=== PATIENT | female | born 1975 | race Caucasian/White ===

== ENCOUNTER 2020-12-23 15:43 | Emergency (ER) | payer MEDICAID ==
[~2020-12-23] VITALS: Ht 160 cm; Wt 75.1 kg
[2020-12-23 15:50] VITALS: BP 163/94
--- NOTE | 2020-12-23 15:57 | NUR ---
Patient ambulated to bed 8. RN evaluating the patient at bedside.
--- NOTE | 2020-12-23 16:02 | NUR ---
PT IS A 45 Y/O FEMALE WALKED IN C/C HIGH BLOOD PRESSURE XTODAY. PATIENT ALSO C/O HEADACHE 12/06 TODAY. PATIENT DENIES CP, SOB, BLURRY VISION, COUGH, ABDOMINAL PAIN, N/V OR DIARRHEA PMH: HTN, CVA 2016 RX: ENALAPRIL 10MG NKA
--- NOTE | 2020-12-23 16:14 | NUR ---
Dr. Leslie is evaluating the patient at bedside.
[2020-12-23] MEDS: KETOROLAC 60 MG/2 ML VIAL IM ONE (16:22)
[2020-12-23] MEDS ORDERED: IBUP-2213 PO (16:40)
--- NOTE | 2020-12-23 16:49 | NUR ---
Patient taken to CT scan via wheelchair by tech.
--- NOTE | 2020-12-23 17:00 | NUR ---
Patient returned from CT scan.
[2020-12-23 17:24] VITALS: BP 131/87
== END 2020-12-23 17:25 | disposition home or self-care (01) ==
LOC: MED 15:43
DX: I10 Essential (primary) hypertension (principal); R51.9 Headache, unspecified; Z90.49 Acquired absence of other specified parts of digestive tract; Z79.899 Other long term (current) drug therapy; Z86.73 Personal history of transient ischemic attack (TIA), and cerebral infarction without residual deficits
CPT/HCPCS: 70450; 96372; 99284; J1885

== ENCOUNTER 2021-08-22 15:15 | Emergency (ER) | payer MEDICAID, OTHER ==
[~2021-08-22] VITALS: Ht 157.5 cm; Wt 72.1 kg
[~2021-08-22 15:15] MED LIST: IBUP-2213 PO
[2021-08-22 16:10] VITALS: BP 154/79
[2021-08-22] MEDS ORDERED: ONDANSETRON 4 MG ODT PO ONE (16:30)
[2021-08-22] MEDS ORDERED: ACETAMINOPHEN 325 MG TAB PO ONE (16:30)
[2021-08-22] MEDS ORDERED: ALUMINUM HYD/MAG/SIMETHICONE 30 ML, DICYCLOMINE HCL LIQUID 20 MG, LIDOCAINE VISCOUS 2% ... PO ONE ×3 (16:30)
[2021-08-22] MEDS ORDERED: DICYCLOMINE HCL LIQUID 10 MG/5 ML UDC ONE (16:50)
[2021-08-22] MEDS ORDERED: ALUMINUM HYD/MAG/SIMETHICONE 30 ML UDC ONE (16:50)
[2021-08-22 17:14] LABS: BASOPHILS # (AUTO) 0.1 K/uL (0.00-0.22); BASOPHILS % (AUTO) 0.6 % (0.0-2.0); EOSINOPHILS # (AUTO) 0.2 K/uL (0-0.4); EOSINOPHILS % (AUTO) 1.7 % (0.0-4.0); HEMATOCRIT 41.6 % (36-48); HEMOGLOBIN 14.2 g/dL (12.0-16.0); LYMPHOCYTES # (AUTO) 2.5 K/uL (2.5-16.5); LYMPHOCYTES % (AUTO) 24.3 % (20.5-51.1); MEAN CORPUSCULAR HEMOGLOBIN 29 pg (27-31); MEAN CORPUSCULAR HGB CONC 34 g/dL (33-37); MEAN CORPUSCULAR VOLUME 85.2 fL (80-94); MONOCYTES # (AUTO) 0.9 K/uL (0.8-1.0); MONOCYTES % (AUTO) 8.4 % (1.7-9.3); NEUTROPHILS # (AUTO) 6.8 K/uL (1.8-7.7); PLATELET COUNT (AUTO) 304 K/uL (140-450); RED BLOOD CELL COUNT(AUTO) 4.89 MIL/uL (4.20-5.40); RED CELL DISTRIBUTION WIDTH 13.6 % (11.6-13.7); WHITE BLOOD COUNT (AUTO) 10.4 K/uL (4.8-10.8)
[2021-08-22 20:01] LABS: ALBUMIN 3.7 g/dL (3.4-5.0); ANION GAP 14.3 (8-16); CARBON DIOXIDE 25.8 mmol/L (21-32); CREATININE 0.7 mg/dL (0.6-1.3); POTASSIUM 4.1 mmol/L (3.5-5.1); TOTAL BILIRUBIN 0.3 mg/dL (0.0-1.0)
--- NOTE | 2021-08-22 20:18 | NUR ---
Patient discharged with v/s stable. Written and verbal after care instructions given and explained. Patient alert, oriented and verbalized understanding of instructions. Ambulatory with steady gait. All questions addressed prior to discharge. ID band removed. Patient advised to follow up with PMD. Rx of KEFLEX, ZOFRAN, AND ZOFRAN given. Patient educated on indication of medication including possible reaction and side effects. Opportunity to ask questions provided and answered.
[2021-08-22] MEDS ORDERED: ONDA-188 SL (20:28)
[2021-08-22] MEDS ORDERED: CEPH-588 PO (20:28)
[2021-08-22] MEDS ORDERED: FAMO-92 PO (20:28)
== END 2021-08-22 20:18 | disposition home or self-care (01) ==
LOC: MED 15:15
DX: K29.70 Gastritis, unspecified, without bleeding (principal); N39.0 Urinary tract infection, site not specified; I10 Essential (primary) hypertension; Z86.73 Personal history of transient ischemic attack (TIA), and cerebral infarction without residual deficits; Z79.899 Other long term (current) drug therapy
CPT/HCPCS: 36415; 80053; 81002; 81025; 83690; 85025; 99284; Q0162

== ENCOUNTER 2023-03-01 03:45 | Emergency (ER) | payer OTHER ==
[~2023-03-01] VITALS: Ht 152.4 cm; Wt 65.8 kg
[~2023-03-01 03:45] MED LIST changes: +CEPH-588 PO; +FAMO-92 PO; +ONDA-188 SL
[2023-03-01 03:52] VITALS: BP 119/79; PULSE 88; RESP 16; TEMP 96.6; O2SAT 100
--- NOTE | 2023-03-01 03:59 | NUR ---
TO LOBBY FOLLOWING TRIAGE
--- NOTE | 2023-03-01 04:45 | NUR ---
PT AMBULATED TO [facility]
[2023-03-01] MEDS ORDERED: CIPR500T4 PO (05:13)
[2023-03-01] MEDS ORDERED: cefTRIAXone 1,000 MG in LIDOCAINE MPF 1% 2.1 ML IM ONE (05:20)
[2023-03-01] MEDS ORDERED: LIDOCAINE MPF 1% 5 ML ONE (05:26)
[2023-03-01] MEDS ORDERED: cefTRIAXone 1,000 MG VIAL ONE (05:26)
[2023-03-01 06:03] VITALS: BP 119/79; PULSE 88; RESP 16; TEMP 97.8; O2SAT 100
--- NOTE | 2023-03-01 06:03 | NUR ---
Patient discharged with v/s stable. Written and verbal after care instructions given and explained BY DR. KUMAR. Patient alert, oriented and verbalized understanding of instructions. Ambulatory with steady gait. All questions addressed prior to discharge. ID band removed. Patient advised to follow up with PMD. Rx of CIPRO given. Patient educated on indication of medication including possible reaction and side effects. Opportunity to ask questions provided and answered.
== END 2023-03-01 06:06 | disposition home or self-care (01) ==
LOC: MED 03:45
DX: H66.002 Acute suppurative otitis media without spontaneous rupture of ear drum, left ear (principal); I10 Essential (primary) hypertension; Z90.49 Acquired absence of other specified parts of digestive tract; Z79.899 Other long term (current) drug therapy; Z86.73 Personal history of transient ischemic attack (TIA), and cerebral infarction without residual deficits
CPT/HCPCS: 96372; 99283; J0696; J2001